=== PATIENT | male | born 1960 | race African-American/Black ===

== ENCOUNTER 2021-08-02 23:11 | Emergency (ER) | payer MEDICAID ==
[~2021-08-02] VITALS: Ht 185.4 cm; Wt 84.0 kg
[2021-08-02 23:14] VITALS: BP 136/84
[2021-08-03] MEDS ORDERED: GABA-532 MT (10:31)
[2021-08-03] MEDS ORDERED: OXYB5TAB17 MT (10:31)
[2021-08-03] MEDS ORDERED: ACET-2708 MT (10:31)
[2021-08-03] MEDS ORDERED: POLY119P2 MT (10:31)
== END 2021-08-03 02:36 | disposition left against medical advice (07) ==
LOC: ER 23:11
DX: R68.89 Other general symptoms and signs (principal); Z53.21 Procedure and treatment not carried out due to patient leaving prior to being seen by health care provider

== ENCOUNTER 2021-08-03 02:45 | Emergency (ER) | payer MEDICAID ==
[~2021-08-03] VITALS: Ht 177.8 cm; Wt 69.0 kg
[2021-08-03 02:57] VITALS: BP 131/69
[2021-08-03] MEDS ORDERED: POLY119P2 MT (10:31)
[2021-08-03] MEDS ORDERED: GABA-532 MT (10:31)
[2021-08-03] MEDS ORDERED: OXYB5TAB17 MT (10:31)
[2021-08-03] MEDS ORDERED: ACET-2708 MT (10:31)
== END 2021-08-03 05:10 | disposition left against medical advice (07) ==
LOC: ER 02:45
DX: Z53.21 Procedure and treatment not carried out due to patient leaving prior to being seen by health care provider (principal)

== ENCOUNTER 2021-08-03 07:04 | Emergency (ER) | payer MEDICAID ==
[~2021-08-03] VITALS: Ht 177.8 cm; Wt 69.0 kg
[2021-08-03] MEDS ORDERED: MORPHINE SULFATE 4 MG/ML CPJ (NOT FOR IM USE) IV ONE (08:30)
[2021-08-03] MEDS ORDERED: SODIUM CHLORIDE 0.9% 1,000 ML IV ONE (08:30)
[2021-08-03 09:15] LABS: HEMATOCRIT. 44.1 % (42.0-52.0); HEMOGLOBIN. 14.5 g/dL (14.0-18.0); MEAN CORPUSCULAR HEMOGLOBIN 28.8 pg (28.0-32.0); MEAN CORPUSCULAR VOLUME 87.5 fL (80.0-94.0); MEAN PLATELET VOLUME 7.7 fl (7.4-10.4); PLATELET 270 x1000/uL (130-400); RED BLOOD CELL COUNT 5.04 mill/uL (4.7-6.1); RED CELL DISTRIBUTION WIDTH 13.6 % (11.6-14.6)
[2021-08-03] MEDS ORDERED: MAGNESIUM/ALUMINUM HYDROXIDE/SIMETHICONE 30ML UDC PO NR (09:15)
[2021-08-03 09:20] LABS: CHLORIDE 105 mEq/L (98-107)
[2021-08-03 09:27] LABS: ETHANOL BLOOD < 10 mg/dL; INR 1.1; PROTHROMBIN TIME 11.9 sec (9.6-11.0)
[2021-08-03] MEDS ORDERED: POLYETHYLENE GLYCOL 3350 (17GM) 1 DOSE PACK PO SCH (10:00)
[2021-08-03 10:11] LABS: CLARITY URINE CLEAR (CLEAR); COLOR URINE DK YELLOW (YELLOW); KETONES URINE TRACE (NEGATIVE); LEUKOCYTE ESTERASE URINE NEGATIVE (NEGATIVE); NITRITE URINE NEGATIVE (NEGATIVE); OCCULT BLOOD URINE NEGATIVE (NEGATIVE); PROTEIN URINE NEGATIVE (NEGATIVE)
[2021-08-03] MEDS ORDERED: POLY119P2 MT (10:31)
[2021-08-03] MEDS ORDERED: GABA-532 MT (10:31)
[2021-08-03] MEDS ORDERED: ACET-2708 MT (10:31)
[2021-08-03] MEDS ORDERED: OXYB5TAB17 MT (10:31)
[2021-08-03 10:37] LABS: *AMPHETAMINES SCREEN URINE PRESUMTIVE POSITIVE (NEGATIVE); *BARBITURATES SCREEN URINE NEGATIVE (NEGATIVE); *BENZODIAZEPINES SCREEN URINE NEGATIVE (NEGATIVE); *COCAINE SCREEN URINE PRESUMTIVE POSITIVE (NEGATIVE)
[2021-08-03 10:38] LABS: CANNABINOID URINE SCREEN NEGATIVE (NEGATIVE); METHADONE URINE SCREEN NEGATIVE (NEGATIVE); OPIATES URINE SCREEN NEGATIVE (NEGATIVE); PHENCYCLIDINE URINE SCREEN NEGATIVE (NEGATIVE)
[2021-08-03 10:59] VITALS: BP 132/74
[2021-08-03 13:03] LABS: PLATELET ESTIMATE NORMAL
== END 2021-08-03 10:59 | disposition home or self-care (01) ==
LOC: ER 07:04
DX: N32.89 Other specified disorders of bladder (principal); I10 Essential (primary) hypertension; F17.200 Nicotine dependence, unspecified, uncomplicated; F14.10 Cocaine abuse, uncomplicated; F12.10 Cannabis abuse, uncomplicated; F15.10 Other stimulant abuse, uncomplicated; F19.10 Other psychoactive substance abuse, uncomplicated
CPT/HCPCS: 36415; 74176; 80053; 80305; 80320; 81003; 83690; 85025; 85610; 99285; G0480; J7030; 99284